=== PATIENT | male | born 1955 | race Caucasian/White ===

== ENCOUNTER → 2020-02-15 | Outpatient (CLI) | payer OTHER ==
--- NOTE | 2020-02-15 15:33 | RAD ---
EXAM: Lumbar spine, 3 views. HISTORY: Pain. COMPARISON: None. FINDINGS: 3 views of the lumbar spine are obtained. There is lumbar levoscoliosis centered at L4. There is degenerative endplate remodeling with disc space narrowing and osteophytosis primarily at L4-L5. There is facet arthropathy predominantly at L5-S1. There are surgical clips within the right abdomen. IMPRESSION: 1. Lumbar scoliosis and degenerative change primarily at the lower lumbar levels. 2. No acute osseous finding. Electronically signed by: Li Nix MD (02/15/2020 3:30 PM) [id number]
--- NOTE | 2020-02-15 16:53 | RAD ---
Right shoulder 3 views INDICATION: Right shoulder pain. Disability determination COMPARISON: None. FINDINGS: AP internal rotation, AP external rotation, scapular Y views of the right shoulder were obtained. They show anatomic alignment of the humeral head with glenoid fossa and mild elevation with no fracture or aggressive appearing osseous lesions. There are osteophytic spurs on the head of the humerus compatible with glenohumeral degenerative change. Inferior osteophytes of the distal clavicle and at the inferior aspect of the right acromion are also present, compatible with acromioclavicular degenerative change. The soft tissues are notable for curvilinear calcifications in the region of the distal rotator cuff tendons. 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 No fracture or dislocation is evident. Electronically signed by: Tigist Whyte MD (02/15/2020 4:49 PM) [facility] [place]
== END | disposition home or self-care (01) ==
LOC: RAD 10:58
PROVIDERS: ATTEND Family Medicine
DX: S46.001A Unspecified injury of muscle(s) and tendon(s) of the rotator cuff of right shoulder, initial encounter (principal); M19.011 Primary osteoarthritis, right shoulder; M47.816 Spondylosis without myelopathy or radiculopathy, lumbar region; M25.711 Osteophyte, right shoulder; M41.86 Other forms of scoliosis, lumbar region; F41.9 Anxiety disorder, unspecified; X58.XXXA Exposure to other specified factors, initial encounter; Y93.89 Activity, other specified; Y92.89 Other specified places as the place of occurrence of the external cause; Y99.8 Other external cause status
CPT/HCPCS: 72100; 73030